=== PATIENT | male | born 1965 | race Caucasian/White ===

== ENCOUNTER → 2016-06-22 | Outpatient (CLI) | payer BC ==
[2016-06-22 12:10] LABS: HEMATOCRIT 48.8 % (42-52); MEAN CELL VOLUME 93.1 fL (80-100); MEAN CORPUSCULAR HEMOGLOBIN 32.6 pg (25-34); MEAN PLATELET VOLUME 12.1 fL (7.4-10.4); PLATELET COUNT 149 K/uL (130-400); RED BLOOD COUNT 5.24 M/uL (4.7-6.1); WHITE BLOOD COUNT 5.88 K/uL (4.8-10.8)
[2016-06-22 12:28] LABS: ALT/SGPT 23 U/L (12-78); BLOOD UREA NITROGEN 19 mg/dl (7-18); BUN/CREATININE RATIO 17.5 (10-20); CALCIUM 9.6 mg/dl (8.5-10.1); CARBON DIOXIDE 32 mmol/L (21-32); CHLORIDE 102 mmol/L (98-107); CHOLESTEROL 217 mg/dl (0-200); GLUCOSE 87 mg/dl (70-99); POTASSIUM 4.7 mmol/L (3.5-5.1); SODIUM 139 mmol/L (136-145); TRIGLYCERIDES 191 mg/dl (0-150); VERY LOW DENSITY LIPOPROT CALC 38 mg/dl
[2016-06-22 12:32] LABS: ALB/GLOB RATIO 1.2 (0.9-2); ALKALINE PHOSPHATASE 64 U/L (45-117); AST/SGOT 21 U/L (15-37); CHOLESTEROL/HDL RATIO 4.3; HDL CHOLESTEROL 50 mg/dl; LDL CHOLESTEROL CALCULATED 129 mg/dl
== END | disposition home or self-care (01) ==
LOC: C.LAB1850 11:13
PROVIDERS: ATTEND Family Medicine
DX: Z00.01 Encounter for general adult medical examination with abnormal findings (principal)